=== PATIENT | female | born 1960 | race Caucasian/White ===

== ENCOUNTER → 2017-03-24 | Outpatient (CLI) | payer MEDICARE ==
[~2017-03-24] MED LIST: LACTATED RINGERS 1,000 ML ONE
== END ==
LOC: AMB 05:34 → EDSTATUS 09:00
PROVIDERS: ATTEND Internal Medicine Gastroenterology
DX: Z01.812 Encounter for preprocedural laboratory examination (principal)

== ENCOUNTER 2017-09-19 22:42 | Emergency (ER) | payer MEDICARE ==
--- NOTE | 2017-09-19 23:21 | ED.PDOC ---
History of Present Illness - General Chief Complaint: Respiratory Problem Stated Complaint: productive cough, fever Time Seen by Provider: 09/19/17 22:57 Source: patient Exam Limitations: no limitations - History of Present Illness Comments: SHE STARTED WITH A FEVER AND COUGH WEDNESDAY EVENING. SHE FEELS SOB AND ALSO VOICES GREEN SPUTUM AND A PURULENT RHINORRHEA. SHE HAS DM, HTN, ANKYLOSING SPONDYLITIS, PSORIASIS, PSORIATIC ARTHRITIS, COPD AND SLEEP APNEA. Cough Quality/Degree: productive cough, sputum Possible Cause: occasional episodes Improving Factors: nothing Worsening Factors: nothing Associated Symptoms: cough, fever/chills, headache, shortness of breath, sore throat Respiratory Risk Factors: no cause identified Allergies/Adverse Reactions: Allergies Celecoxib [From Celebrex] Allergy (Verified 03/22/17 15:24) Meperidine [From Demerol HCl] Allergy (Verified 03/22/17 15:24) Methocarbamol [From Robaxin] Allergy (Verified 03/22/17 15:24) Home Medications: Ambulatory Orders Albuterol Inhaler [Ventolin Hfa Inhaler] 2 puff INH Q6HRS 5 Days inh 09/20/17 Cefdinir 300 mg PO BID #20 capsule 09/20/17 Prednisone [Deltasone] 20 mg PO DAILY 5 Days tab 09/20/17 Review of Systems - Review of Systems Constitutional: States: chills, fever, malaise EENTM: States: ear pain, nose congestion, throat pain Respiratory: States: cough, short of breath, wheezing Cardiology: States: no symptoms reported Gastrointestinal/Abdominal: States: no symptoms reported Genitourinary: States: no symptoms reported Skin: States: no symptoms reported Neurological: States: no symptoms reported Endocrine: States: no symptoms reported Hematologic/Lymphatic: States: no symptoms reported Past Medical History (General) - Patient Medical History Hx of COPD: Yes - mitral valve Hx Hypertension: Yes - no meds Hx Diabetes: Yes - no meds Hx Gastroesophageal Reflux: Yes - no meds Hx MRSA: No Surgical History: appendectomy, cholecystectomy, tonsillectomy, Hysterectomy - Vaccination History Hx Influenza Vaccination: Yes Hx Pneumococcal Vaccination: Yes - Female History Patient is a Female of Child Bearing Age (10 -59 yrs old): No Family Medical History - Family History Father Family History: Unknown Physical Exam - Physical Exam General Appearance: Alert, Obese, Restless, Other - COUGHING Eye Exam: bilateral normal ENT Exam: TMs normal, pharynx normal, nasal congestion Neck: non-tender, full range of motion, supple, normal inspection Respiratory: chest non-tender, lungs clear, rhonchi, wheezing Cardiovascular/Chest: normal peripheral pulses, regular rate, rhythm, no edema, no gallop, no JVD, no murmur Gastrointestinal/Abdominal: normal bowel sounds, non tender, soft Extremity: normal range of motion, non-tender 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, no motor/sensory deficits, normal mood/ affect, oriented x 3 Skin Exam: other - PSORIATIC PLAQUES NOTED Lymphatic: no adenopathy Progress - Results/Orders Results/Orders: cxr w/o EVIDENCE OF PNEUMONIA Departure - Departure Clinical Impression: Acute bronchitis Qualifiers: Bronchitis organism: other organism Qualified Code(s): J20.8 - Acute bronchitis due to other specified organisms Reactive airway disease with wheezing Qualifiers: Asthma severity: moderate Asthma persistence: persistent Asthma complication type: uncomplicated Qualified Code(s): J45.40 - Moderate persistent asthma, uncomplicated Time of Disposition: 00:08 Disposition: Discharge to Home or Self Care Condition: Good Departure Forms: ED Discharge - Pt. Copy Instructions: Acute Bronchitis, Asthma, Adult (DC) Referrals: VIRGINIA HUFFMAN [Primary Care Provider] - 1-2 Weeks Prescriptions: Albuterol Inhaler [Ventolin Hfa Inhaler] 2 puff INH Q6HRS 5 Days inh Cefdinir 300 mg PO BID #20 capsule Prednisone [Deltasone] 20 mg PO DAILY 5 Days tab Home Medications: Ambulatory Orders Albuterol Inhaler [Ventolin Hfa Inhaler] 2 puff INH Q6HRS 5 Days inh 09/20/17 Cefdinir 300 mg PO BID #20 capsule 09/20/17 Prednisone [Deltasone] 20 mg PO DAILY 5 Days tab 09/20/17
--- NOTE | 2017-09-19 23:33 | RAD ---
EXAM: Chest,1 View CLINICAL INDICATION: 56-year-old female with fever and cough. TECHNIQUE: Single view, AP portable chest was obtained. COMPARISON: None. FINDINGS: Unremarkable cardiac and mediastinal silhouette. Heart size is normal. Lung volumes grossly clear without focal opacity, pneumothorax or pleural effusions. The visualized bones are within normal limits. IMPRESSION: No acute cardiopulmonary abnormalities. Electronically signed by: Brielle Pham MD 09/19/2017 11:32 PM CDT
[2017-09-20] MEDS ORDERED: IPRATROPIUM/ALBUTEROL 3 ML VIAL NEB ONE (00:03)
[2017-09-20] MEDS ORDERED: methylPREDNISolone SODIUM SUC 125 MG/2 ML VIAL IV ONE (00:03)
[2017-09-20] MEDS ORDERED: cefTRIAXone SODIUM 1 GM in SODIUM CHL 0.9% 50ML MIN-BAG+ 50 ML IVPB ONE (00:04)
[2017-09-20] MEDS ORDERED: SODIUM CHL 0.9% 50ML MIN-BAG+ 50 ML IVPB ONE (00:08)
[2017-09-20] MEDS ORDERED: cefTRIAXone SODIUM 1 GM VIAL ONE (00:08)
[2017-09-20] MEDS ORDERED: HYDROcodone 10MG/APAP 325MG 1 EA TAB PO ONE (00:26)
[2017-09-20 00:57] VITALS: BP 129/85; TEMP 100; O2SAT 94
== END 2017-09-20 00:58 | disposition home or self-care (01) ==
LOC: ER 22:42
DX: J20.9 Acute bronchitis, unspecified (principal); J45.40 Moderate persistent asthma, uncomplicated; J44.0 Chronic obstructive pulmonary disease with (acute) lower respiratory infection; I10 Essential (primary) hypertension; K21.9 Gastro-esophageal reflux disease without esophagitis; Z79.899 Other long term (current) drug therapy; Z88.8 Allergy status to other drugs, medicaments and biological substances; E11.9 Type 2 diabetes mellitus without complications
CPT/HCPCS: 71045; 80053; 81001; 85025; 94640; J0696; J2930; J7050; J7620

== ENCOUNTER → 2018-02-02 | Outpatient (CLI) | payer MEDICARE | LOC: LAB.O 11:57 | PROVIDERS: ATTEND Internal Medicine Rheumatology | DX: L40.59 Other psoriatic arthropathy (principal); Z79.899 Other long term (current) drug therapy ==

== ENCOUNTER → 2018-03-14 | Outpatient (CLI) | payer MEDICARE | LOC: LAB.O 11:02 | PROVIDERS: ATTEND Internal Medicine Rheumatology | DX: L40.59 Other psoriatic arthropathy (principal); Z79.899 Other long term (current) drug therapy ==

== ENCOUNTER 2019-10-17 07:27 | Emergency (ER) | payer MEDICARE ==
[2019-10-17 07:42] VITALS: TEMP 98.9
--- NOTE | 2019-10-17 07:58 | RAD ---
LEFT ANKLE, THREE VIEWS, XR. HISTORY: Pain after fall. COMPARISON: None.. TECHNIQUE: AP, lateral, and oblique views of the left ankle. . FINDINGS: Generalized left distal leg and ankle edema, greatest over the lateral malleolus. No definite acute fracture. No dislocation. Joint spaces are preserved. Generalized decreased bone density. There is a small posterior and inferior calcaneal enthesophyte. IMPRESSION: 1. Distal left leg and ankle soft tissue edema. No fracture. 2. Osteopenia. Electronically signed by: Steffanie Givens DO 10/17/2019 7:56 AM CDT
--- NOTE | 2019-10-17 08:09 | ED.PDOC ---
History of Present Illness - General Chief Complaint: Lower Extremity Injury Stated Complaint: fall and left ankle pain Time Seen by Provider: 10/17/19 07:59 Source: patient Exam Limitations: no limitations - History of Present Illness Initial Comments: PT WAS WALKING OUT HER BACK PORCH, AND SLIPPED/TRIPPED (JUST LOST HER FOOTING), TWISTED HER ANKLE. C/O L ANKLE PAIN. DENIES ANY OTHER PAIN OR INJURY. NO HEAD COLLISION. NO LOC. Allergies/Adverse Reactions: Allergies Celecoxib [From Celebrex] Allergy (Verified 10/17/19 07:42) Meperidine [From Demerol HCl] Allergy (Verified 10/17/19 07:42) Methocarbamol [From Robaxin] Allergy (Verified 10/17/19 07:42) Home Medications: Ambulatory Orders Albuterol Inhaler [Ventolin Hfa Inhaler] 2 puff INH Q6HRS 5 Days inh 09/20/17 Cefdinir 300 mg PO BID #20 capsule 09/20/17 Prednisone [Deltasone] 20 mg PO DAILY 5 Days tab 09/20/17 Review of Systems - Review of Systems Constitutional: States: no symptoms reported EENTM: States: no symptoms reported Respiratory: States: no symptoms reported Cardiology: States: no symptoms reported Gastrointestinal/Abdominal: States: no symptoms reported Genitourinary: States: no symptoms reported Musculoskeletal: States: see HPI. Denies: back pain, neck pain Skin: States: no symptoms reported Neurological: States: no symptoms reported Endocrine: States: no symptoms reported Hematologic/Lymphatic: States: no symptoms reported All other Systems: Reviewed and Negative Past Medical History (General) - Patient Medical History Hx Seizures: No Hx Stroke: Yes Hx of COPD: Yes - mitral valve Hx Cardiac Disorders: Yes Hx Congestive Heart Failure: No Hx Pacemaker: No Hx Hypertension: Yes - no meds Hx Diabetes: Yes - no meds Hx Gastroesophageal Reflux: Yes - no meds Hx Cancer: No Hx Hepatitis C: No Hx MRSA: No Surgical History: appendectomy, cholecystectomy, Hysterectomy - Vaccination History Hx Tetanus, Diphtheria Vaccination: No Hx Influenza Vaccination: Yes Hx Pneumococcal Vaccination: Yes - Social History Hx Tobacco Use: No Hx Alcohol Use: No Hx Substance Use: No Hx Substance Use Treatment: No Hx Depression: No - Female History Patient is a Female of Child Bearing Age (10 -59 yrs old): No Family Medical History - Family History Father Family History: Unknown Physical Exam - Physical Exam General Appearance: Alert, No apparent distress Eyes, Ears, Nose, Throat: PERRL/EOMI, normal ENT inspection Neck: non-tender, full range of motion Cardiovascular/Respiratory: regular rate, rhythm, no M/R/G Gastrointestinal/Abdominal: non-tender Back: normal inspection, no vertebral tenderness Thigh/Hip: no evidence of injury, normal ROM Leg: normal ROM, abrasions Knee: normal ROM, abrasions Ankle: limited ROM, pain, soft tissue tenderness, swelling Foot: limited ROM - FROM PAIN, soft tissue tenderness Neuro/Tendon: normal sensation, normal motor functions, normal tendon functions Mental Status: alert, oriented x 3 Skin: normal color, warm/dry Progress - Progress Progress: 10/17/19 08:11 L ANKLE SPRAIN. L ANKLE XRAY - NO FRX. NO DISLOCATION. POS ANKLE EDEMA. RICE. 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 10/17/19 08:12 Departure - Departure Clinical Impression: Left ankle sprain Qualifiers: Encounter type: initial encounter Involved ligament of ankle: anterior t alofibular ligament Qualified Code(s): S93.492A - Sprain of other ligament of left ankle, initial encounter Disposition: Discharge to Home or Self Care Condition: Good Departure Forms: ED Discharge - Pt. Copy, Patient Portal Self Enrollment Instructions: DI for Leg Pain, Ankle Sprain (DC) Diet: resume usual diet Activity: increase activity as tolerated Referrals: VIRGINIA HUFFMAN [Primary Care Provider] - 1-2 Weeks Home Medications: Ambulatory Orders Albuterol Inhaler [Ventolin Hfa Inhaler] 2 puff INH Q6HRS 5 Days inh 09/20/17 Cefdinir 300 mg PO BID #20 capsule 09/20/17 Prednisone [Deltasone] 20 mg PO DAILY 5 Days tab 09/20/17 Additional Instructions: Please rest the ankle today, apply ice, use Steven wrap for support and comfort, el evate the leg on the bed, and use tylenol or ibuprofen as needed for pain. 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
[2019-10-17 08:18] VITALS: BP 143/79; O2SAT 94
== END 2019-10-17 08:17 | disposition home or self-care (01) ==
LOC: ER 07:27
DX: S93.492A Sprain of other ligament of left ankle, initial encounter (principal); S80.219A Abrasion, unspecified knee, initial encounter; S80.819A Abrasion, unspecified lower leg, initial encounter; J44.9 Chronic obstructive pulmonary disease, unspecified; I34.1 Nonrheumatic mitral (valve) prolapse; K21.9 Gastro-esophageal reflux disease without esophagitis; I10 Essential (primary) hypertension; E11.9 Type 2 diabetes mellitus without complications; Z86.73 Personal history of transient ischemic attack (TIA), and cerebral infarction without residual deficits; Z79.899 Other long term (current) drug therapy; Z88.8 Allergy status to other drugs, medicaments and biological substances; W01.0XXA Fall on same level from slipping, tripping and stumbling without subsequent striking against object, initial encounter; Y92.008 Other place in unspecified non-institutional (private) residence as the place of occurrence of the external cause